=== PATIENT | female | born 1965 | race Asian ===

== ENCOUNTER 2019-04-15 23:20 | Emergency (ER) | payer MEDICAID ==
[~2019-04-15] VITALS: Ht 162.6 cm; Wt 54.4 kg
[2019-04-16 01:08] LABS: Basophils # (auto) 0.5 uL; Basophils % (auto) 2.9 % (0.0-2.0); Eosinophils # (auto) 0.1 uL; Eosinophils % (auto) 0.5 % (0.0-7.0); Hematocrit 37.4 % (36.0-46.0); Hemoglobin 12.6 g/dL (12.2-16.2); Lymphocytes # (auto) 0.7 uL; Lymphocytes % (auto) 4.7 % (10.0-50.0); Mean Corpuscular Hemoglobin 31.1 pg (28.0-32.0); Mean Corpuscular Hgb Conc. 33.7 g/dL (32.0-36.0); Mean Corpuscular Volume 92.2 fL (80.0-100.0); Monocytes # (auto) 0.5 uL; Monocytes % (auto) 3.3 % (0.0-12.0); Neutrophils # (auto) 14.1 uL; Neutrophils % (auto) 88.6 % (37.0-80.0); Platelet Count (auto) 196 10^3/uL (140-450); Red Blood Cells 4.05 10^6/uL (4.0-5.20); Red Cell Distribution Width 14.9 % (11.8-14.3); White Blood Cell 15.9 10^3/uL (4.4-10.8)
[2019-04-16 01:18] LABS: Albumin 3.9 g/dL (3.4-5.0); BUN/Creatinine Ratio 21.8; Calcium 8.3 mg/dL (8.5-10.1); Potassium 3.9 mmol/L (3.5-5.1)
[2019-04-16 01:20] LABS: Bilirubin, Total 0.2 mg/dL (0.2-1.0); Total Protein 7.3 g/dL (6.4-8.2)
[2019-04-16] MEDS ORDERED: IOHEXOL 300 MG/ML 100ML BOTTLE IJ ONE (04:25)
[2019-04-16] MEDS ORDERED: SODIUM CHLORIDE 0.9% 1,000 ML IV ONE (04:30)
[2019-04-16 06:45] LABS: Urine Bacteria NONE SEEN /hpf (None Seen); Urine Blood 3+ /uL (Negative); Urine Specific Gravity 1.042 (1.001-1.035); Urine WBC 47 /hpf (0 - 5)
[2019-04-16 09:58] VITALS: BP 160/95
== END 2019-04-16 11:03 | disposition home or self-care (01) ==
LOC: ER 23:20
DX: N93.9 Abnormal uterine and vaginal bleeding, unspecified (principal); N39.0 Urinary tract infection, site not specified; R55 Syncope and collapse
CPT/HCPCS: 36415; 74177; 76856; 80053; 81001; 85025; 96360; 99284; J7030; Q9967